=== PATIENT | female | born 1960 | race Two or more races ===

== ENCOUNTER 2022-08-09 10:09 | Outpatient (CLI) | payer OTHER | END 2022-08-09 10:15 | disposition home or self-care (01) | LOC: LAB 10:09 | PROVIDERS: ATTEND Orthopaedic Surgery | DX: M85.9 Disorder of bone density and structure, unspecified (principal); E83.42 Hypomagnesemia; E56.1 Deficiency of vitamin K; E88.89 Other specified metabolic disorders; M81.8 Other osteoporosis without current pathological fracture ==